=== PATIENT | female | born 1990 | race Caucasian/White ===

== ENCOUNTER → 2018-01-23 20:30 | Observation (INO) ==
[2018-01-23 17:50] VITALS: BP 132/85
[2018-01-23 17:50] LABS: Bilirubin,Urine Negative (Negative); Blood,Urine Negative (Negative); Clarity,Urine Turbid (Clear); Color,Urine Yellow (Yellow); Glucose,Urine (UA) Normal (Normal); Ketones,Urine Trace mg/dL (Negative); Leukocyte Esterase,Urine Large (Negative); Nitrite,Urine Negative (Negative); Protein,Urine Negative (Neg-Trace); Specific Gravity,Urine 1.025 (1.010-1.025); Urobilinogen,Urine Normal (Normal)
[2018-01-23 17:52] LABS: Bacteria,Urine Moderate per hpf (None-Few); Hyaline Casts,Urine None Seen per lpf (None-Few); RBC,Urine 0-3 per hpf (0-3); Squamous Epithelial Cell,Urine Many per lpf (None-Few); WBC,Urine 30-50 per hpf (0-3)
[2018-01-23 17:58] LABS: Amphetamine Screen,Urine Negative ng/mL (Cutoff=1000); Barbiturate Screen,Urine Negative ng/mL (Cutoff=200); Benzodiazepines Screen,Urine Negative ng/mL (Cutoff=200); Cannabinoid Screen,Urine Negative ng/mL (Cutoff = 50); Cocaine Screen,Urine Negative ng/mL (Cutoff= 300); Opiate Screen,Urine Negative ng/mL (Cutoff=300); Phencyclidine Screen,Urine Negative ng/mL (Cutoff=25)
[2018-01-23 20:13] LABS: Candida DNA Not Detected (Not Detect); Gardnerella DNA DETECTED (Not Detect); Trichomonas DNA Not Detected (Not Detect)
--- NOTE | 2018-01-23 20:17 | Discharge Summary ---
Date of Encounter: 01/23/18 Time of Encounter: 20:17 - Discharge Diagnosis (1) 35 weeks gestation of Priority: Primary Status: Acute Comments: Admitted for observation due to patient complaint of cramping. (2) Bacterial vaginosis Priority: Secondary Status: Acute Comments: Treat with Metrogel x 5 days. (3) NST (non-stress test) reactive Priority: Secondary Status: Acute Comments: FHR 135 bpm, moderate variability, +15x15 accels, no decels. - Discharge Medications Prescriptions: MetroNIDAZOLE [Metrogel-Vaginal] 70 gm VG HS 5 Days #5 gel.w.appl Home Medications: MetroNIDAZOLE [Metrogel-Vaginal] 70 gm VG HS 5 Days #5 gel.w.appl 01/23/18 [Rx] Pnv95/Ferrous Fumarate/FA [ Vitamin Tablet] 1 each PO 01/23/18 [History] Allergies/Adverse Reactions: Allergy/AdvReac Type Severity Reaction Status Date / Time No Known Allergies Allergy Verified 01/23/18 16:35 Data Procedures and tests throughout hospitalization: Laboratory Tests 01/23/18 01/23/18 01/23/18 15:32 15:32 19:04 Urine Color Yellow Urine Clarity Turbid A Urine pH 7.0 Ur Specific Miller 1.025 Urine Protein Negative Urine Glucose (UA) Normal Urine Ketones Trace H Urine Blood Negative Urine Nitrite Negative Urine Bilirubin Negative Urine Urobilinogen Normal Ur Leukocyte Esterase Large H Urine Microscopic RBC 0-3 Urine Microscopic WBC 30-50 H Ur Squamous Epith Cells Many H Urine Bacteria Moderate H Hyaline Casts None Seen Ur Culture Indicated? NO. A Urine Opiates Screen Negative Ur Barbiturates Screen Negative Ur Phencyclidine Scrn Negative Ur Amphetamines Screen Negative U Benzodiazepines Scrn Negative Urine Cocaine Screen Negative U Marijuana (THC) Screen Negative Ur Drug Screen Interp See Below Snehal species DNA Not Detected Gardnerella DNA Probe DETECTED A Trichomonas DNA Probe Not Detected Labs on day of discharge: Labs from last 24 hours 01/23/18 01/23/18 01/23/18 19:04 15:32 15:32 Urine Color Yellow Urine Clarity Turbid A Urine pH 7.0 Ur Specific Miller 1.025 Urine Protein Negative Urine Glucose (UA) Normal Urine Ketones Trace H Urine Blood Negative Urine Nitrite Negative Urine Bilirubin Negative Urine Urobilinogen Normal Ur Leukocyte Esterase Large H Urine Microscopic RBC 0-3 Urine Microscopic WBC 30-50 H Ur Squamous Epith Cells Many H Urine Bacteria Moderate H Hyaline Casts None Seen Ur Culture Indicated? NO. A Urine Opiates Screen Negative Ur Barbiturates Screen Negative Ur Phencyclidine Scrn Negative Ur Amphetamines Screen Negative U Benzodiazepines Scrn Negative Urine Cocaine Screen Negative U Marijuana (THC) Screen Negative Ur Drug Screen Interp See Below Snehal species DNA Not Detected Gardnerella DNA Probe DETECTED A Trichomonas DNA Probe Not Detected Date of admission: 01/23/18 15:41 Primary care physician: Bo Amanda MD Discharging clinician: Natalya Melvin Anticipated date of discharge: 01/23/18 - Patient Status Disposition: Home, Self-Care Condition: Good Functional capacity at discharge: independent ambulation Overall status at discharge: patient is back to baseline - Discharge Instructions Follow Up With: Bo Amanda MD [Primary Care Provider] - - Diet and Activity Activity: resume usual activities as tolerated Diet: regular diet Hospital Course DISCHARGE PLANNER Time Attestation: Total time spent providing and/or coordinating discharge services: Exam - Constitutional Vitals: Temp Pulse Resp BP 98.8 F 103 16 132/85 01/23/18 16:05 01/23/18 16:31 01/23/18 16:05 01/23/18 16:31 General appearance IM: A&O X 3, pleasant, no acute distress - Respiratory Respiratory exam: Present: CTAB - Cardiovascular Cardiovascular exam IM: Present: RRR, +S1, +S2 - GI/Abdominal GI/Abdominal exam IM: normal bowel sounds - Rectal Rectal exam: deferred - Extremities Exam Extremities exam IM: Present: full ROM, normal capillary refill, normal inspection - Neurological Exam Neurological exam: alert, normal gait, oriented X3 - VTE Reasons for not Prescribing Prophylaxis: Treatment not Indicated - Low risk for VTE
== END | disposition home or self-care (01) ==
LOC: 1NENULAB
PROVIDERS: ADMIT Advanced Practice Midwife; ATTEND Advanced Practice Midwife

== ENCOUNTER 2018-02-24 17:11 | Inpatient (IN) ==
[~2018-02-24 17:11] MED LIST: *HR* Nalbuphine 10 MG/ML AMPUL IVP PRN; Famotidine 20 MG/2 ML VIAL IVP PRN; Metoclopramide 10 MG/2 ML VIAL IVP PRN; Naloxone 0.4 MG/ML INJ IVP PRN; Ondansetron 4 MG/2 ML VIAL IVP PRN
[2018-02-24] MEDS ORDERED: Ringers Solution, Lactated 1,000 ML IVC SCH (17:15)
--- NOTE | 2018-02-24 17:19 | OB/GYN History & Physical ---
Date of Encounter: 02/24/18 Time of Encounter: 17:14 Assessment and Plan (1) 39 weeks gestation of Current visit: Yes Status: Acute (2) Intrauterine Current visit: Yes Status: Acute Admit to L&D for observation of labor Expectant management Pain management plan is epidural-may have upon request Labs-CBC and clot to hold Remaining auscultation GBS negative Next status evaluation post epidural Anticipate Dr. Faust is OB recreational counselor and available as needed (3) Active labor Current visit: Yes Status: Acute (4) Type A blood, Rh negative Current visit: Yes Status: Acute Rh evaluation will be done (5) Intact amniotic membranes during in third trimester Current visit: Yes Status: Acute History of Present Illness Chief complaint: active labor HPI: Ms. Spangler is a 28 year old female at 39 weeks 4 days gestation with an estimated date of 02/27/18 dated by early ultrasound. She presents in active labor mojgan every 2-[address] Varela stripped her membranes in the office today at around 11 AM. Contractions started at about 1 PM this afternoon. She endorses good movement and denies leakage of fluid and vaginal bleeding. She has been seen by Dr. Varela throughout her . Her has been complicated most recently by grade 3 placenta with adequate growth. records are available electronically been reviewed. Labs: A- GBS negative Hep B negative HIV negative GC/CL negative T. Palladium negative Varicella immune Rubella immune Past Med Surg Social Fam HX - Past Medical History Medical history: no medical history, other Additional medical history: vaginal delivery 05/08/2013. T&A @ 6 years of age Psychiatric history: no psych history - Past Surgical History Surgical History: non-contributory Additional surgical history: vaginal sx @ 18 years of age - Social History Smoking Status: Never smoker Alcohol use: none Drug use: none - Family History Mother Adopted: [place]: landon workman Age: 55 Family Member Ethnicity: Non- Living Status: Still Living Hx Family Cardiac Disorders: Yes (hypertension) Obstetrical History - Pregnancies : 2 Para: 1 Term: 1 (# 1: 05/08/2013 38weeks, , vaginal delivery, Weight:5lb 13oz, female "Chani". ) : 0 Ab's: 0 Livin Medications and Allergies Pnv95/Ferrous Fumarate/FA [ Vitamin Tablet] 1 each PO 01/23/18 [History] Allergy/AdvReac Type Severity Reaction Status Date / Time No Known Allergies Allergy Verified 01/23/18 16:35 Review of System OB All systems PM: reviewed and no additional remarkable complaints except as stated Exam - Constitutional Constitutional: well developed, well nourished, moderate distress, thin - HEENT HEENT: PERRL, Normocephaly, Mucus Membranes Moist - Neck Neck exam: full ROM - Lungs Respiratory exam: CTAB - Cardiovascular Cardiovascular exam: RRR, +S1, +S2 - Breasts Breast: bilateral: normal - Abdomen Abdomen: Present: bowel sounds normal, gravid, non tender - Extremities Extremities exam: normal capillary refill, normal inspection, radial pulses palpable and symmetrical Deep Tendon Reflex Grade: 2+ Normal - Vulva Vulva: bilateral: normal - Vagina Vagina: Present: normal moisture, discharge - Cervix Dilation: 5 Effacement: 70 Station: -2 - Uterus Uterus exam: Present: normal size, normal contour - Adnexa Adnexa: bilateral: normal - Anus/Rectum Anus/Rectum: Present: normal perianal skin Results All other labs normal. - VTE Reasons for not Prescribing Prophylaxis: Treatment not Indicated - Low risk for VTE
[2018-02-24] MEDS ORDERED: Ringers Solution, Lactated 1,000 ML ONE (17:22)
[2018-02-24 17:41] LABS: Basophils % 0.2 %; Eosinophils # 0.2 K/mcL (0.0-0.6); Hematocrit 42.8 % (35.3-44.9); Immature Granulocytes % 0.5 % (0-4); Lymphocytes # 2.1 K/mcL (0.6-4.6); Lymphocytes % 13.8 %; Mean Corpuscular HGB Conc 32.7 g/dL (31.6-35.5); Mean Corpuscular Hemoglobin 27.7 pg (28.0-33.3); Mean Corpuscular Volume 84.6 fL (83.0-100.0); Mean Platelet Volume 11.1 fL (9.4-12.4); Monocytes % 6.6 %; Neutrophils # 11.9 K/mcL (1.6-8.9); Platelet Count 288 K/mcL (140-400); Red Blood Count 5.06 M/mcL (3.82-4.97); Red Cell Distribution Width 14.1 % (11.5-14.5); Segmented Neutrophils % 77.9 %
[2018-02-24 17:50] LABS: Amphetamine Screen,Urine Negative ng/mL (Cutoff=1000); Barbiturate Screen,Urine Negative ng/mL (Cutoff=200); Benzodiazepines Screen,Urine Negative ng/mL (Cutoff=200); Cannabinoid Screen,Urine Negative ng/mL (Cutoff = 50); Cocaine Screen,Urine Negative ng/mL (Cutoff= 300); Opiate Screen,Urine Negative ng/mL (Cutoff=300); Phencyclidine Screen,Urine Negative ng/mL (Cutoff=25)
[2018-02-24] MEDS ORDERED: *HR* FentaNYL (PF) 100 MCG/2 ML VIAL EP ONE (17:56)
--- NOTE | 2018-02-24 17:59 | Anesthesia Evaluation PreOp ---
Date of Encounter: 02/24/18 Time of Encounter: 17:57 - Past History Planned Operation: antonette Cardiac History: Denies any Significant Hx Pulmonary History: Denies Any Significant HX MULE RIDER History: Denies Any Significant HX Other Medical History: GERD Anesthesia History: No Prior Anesthetic Complications (tonsil, vag, antonette) : Yes Test: Positive Alcohol Use: none Drug use: none Medications and Allergies Pnv95/Ferrous Fumarate/FA [ Vitamin Tablet] 1 each PO 01/23/18 [History] Allergy/AdvReac Type Severity Reaction Status Date / Time No Known Allergies Allergy Verified 01/23/18 16:35 - Meds/Allergy Pre-op Review Medications Reviewed: Yes Allergies Reviewed: Yes Beta Blockers on Current Med List: No Anesthesia Results - Labs 02/24/18 17:15 Anesthesia Exam see note Height: 5'5" Weight: 39 Pain Scale: 7 Pain Scale Used: Numeric (1 - 10) - HEENT Pupil (Motor): Pupils equal Mallampati: II Teeth: Normal Oral Opening: Greater than 3 - MULE RIDER LOC: Oriented MULE RIDER Motor: Normal RUE, Normal LUE, Normal RLE, Normal LLE, Normal Face MULE RIDER Sensory: Normal: RUE, LUE, RLE, LLE, Face - Cardiac Rhythm: Regular Murmur: None - Pulmonary Breath Sounds: bilateral Clear Respiratory Effort: Symmetrical Anesthesia Assess/Plan ASA Score: 2 Level of consciousness: Cooperative Anesthetic Plan: Epidural (risks discussed questions answered, consented) Monitoring Plan: Standard Monitors Recovery Plan: Other
[2018-02-24] MEDS ORDERED: Epidural Premix (fent/bupiv) 110 ML EP SCH (18:00)
[2018-02-24] MEDS ORDERED: Lidocaine -MPF 2% 5 ML VIAL ONE (18:01)
[2018-02-24] MEDS ORDERED: *HR* FentaNYL (PF) 100 MCG/2 ML VIAL ONE (18:01)
--- NOTE | 2018-02-24 18:31 | Anesthesia Procedures ---
Addendum entered and electronically signed by Milton Cornelius CRNA 02/25/18 01:55: Infant Delivery Date: 02/25/18 Delivery Time: 00:07 Original Note: Date of Encounter: 02/24/18 Time of Encounter: 18:29 Procedures: Anesthesia - Epidural/Spinal Patient ID/Chart reviewed: Yes Patient examined: Yes OB Eval: Gestational age: 39 OB Eval: : 2 OB Eval: Hx Para: 1 OB Eval: Dilated at (cm): 4 OB Eval: Contractions: Non-stressed pattern Consent Obtained: Yes Supplemental Oxygen: None/Room Air Site Prep: Aseptic Technique, Sterile prep and drape, 0.5% Chlorhexidine/Alcohol Local Anesthetic: Lidocaine 1% Amount of Local Anesthetic used: 3 Touhy Needle Gauge: 18 Touhy Needle Depth (cm): 6 Catheter Depth at Skin (cm): 15 Test Dose (1.5% Lido + Epi): Volume given (mls): 3 Test Dose Result: Negative Loading Dose: Fentanyl (mcg): 100 Loading Dose: Other: rop 0.2% 10cc Loading Dose Administered: Thru Touhy Needle Infusion Med: 0.125% Bupivacaine w/ 2 mcg/ml Fentanyl Infusion Rate (mls/hr): 15 (pcea 5 cc q30") Catheter Secured in Place: Tegaderm Interspace Used: L2-L3 Loss of Resistance (RITA): Yes Blood: No CSF: No Paresthesia: No Procedure: aseptic, cesar well, effective Vitals + FHT's: 144/88 104 fht 150
[2018-02-24] MEDS ORDERED: EPHEDrine 50 MG/ML VIAL ONE (19:01)
--- NOTE | 2018-02-24 19:37 | OB Labor Progress Note ---
Date of Encounter: 02/24/18 Time of Encounter: 19:35 Labor Progress Note - Subjective Subjective: Patient comfortable with epidural - Cervix Cervix: /-2 - Heart Tones Heart Tones: Baseline 150 Moderate variability Accelerations present 15x15 No decelerations FHR Category I - Wilbur Wilbur: Contractions every 2 minutes and palpate strong - Interventions Interventions: SVE AROM- moderate amount of clear fluid - Plan Physician notified: Yes Physician notified details: Dr. Faust notified of AROM Plan: Continue expectant management Frequent position changes with peanut ball Anticipate Dr. Faust aware of POC and agrees
[2018-02-24 20:08] LABS: Alanine Aminotransferase 14 Units/L (7-52); Aspartate Amino Transferase 18 Units/L (13-39); BUN/Creatinine Ratio 13 (6-26); Blood Urea Nitrogen 6 mg/dL (6-20); Lactate Dehydrogenase 141 Units/L (140-271); Protein/Creatinine Ratio,Urine 0.15 mg/mg (0.00-0.20); Uric Acid 5.1 mg/dL (2.3-7.6); eGFR For Non-African Americans > 60 (> 60)
[2018-02-24] MEDS ORDERED: Oxytocin 20 units/ LR 1000 mL 20 UNIT/1,000 ML BAG IVC ONE (20:19)
--- NOTE | 2018-02-24 21:53 | OB Labor Progress Note ---
Date of Encounter: 02/24/18 Time of Encounter: 21:52 Labor Progress Note - Subjective Subjective: Patient comfortable with epidural - Cervix Cervix: 9/100/-1 - Heart Tones Heart Tones: FHR Category I Unchanged from previous assessment - Holters Crossing Holters Crossing: Contractions every 3 minutes and palpate strong - Interventions Interventions: SVE Position changes - Plan Physician notified: No Plan: Continue expectant management Frequent position changes Re-evaluate in 2 hours Anticipate
--- NOTE | 2018-02-25 00:47 | OB/GYN Procedure Note ---
Delivery - Delivery Date: 02/25/18 Provider: Sintia Pacheco Intrapartum events: none Delivery induction: none Delivery augmentation: rupture of membranes Delivery monitor: external FHT, external uterine Anesthesia: epidural Quantitated Blood Loss: 200 - Infant (s) Infant A Infant Delivery Date: 02/25/18 Infant Delivery Time: 00:07 Presentation: vertex Position: OA Route of delivery: Gender: Female Viability: Viable Pounds: 7 Ounces: 5 Weight Gram: 3.33 kg at 1 minute: 8 at 5 mins: 9 Shoulder Dystocia: not encountered Specimens collected: cord blood Placenta: spontaneous Cord: 3 umbilical vessels - Repair Episiotomy: none Laceration Description: None - Complications Delivery complications: none Delivery comments: This is a 28 year old G2 now P1 who was admitted for active labor. She progressed with AROM to the second stage of labor. She pushed for about 45 minutes. She delivered a viable, male , "Moi Tay", OA over an intact perineum. A nuchal cord was not identified. A shoulder dystocia was not encountered. The infant was placed on the maternal abdomen and allowed to transition spontaneously. The cord was double clamped by electronic assembler group leader after pulsations ceased and cut by FOB. scores were 8 at 1 minute and 9 at 5 minutes. The infant weighed [default value]. The placented delivered (Tesfaye) spontaneously, intact with a 3-vessel cord. Inspection revealed an intact perineum. The uterus was firm with no active bleeding. EBL was 200 mL. Placenta and umbilical artery blood gases were not sent. There were no complications during the procedure. Mom and baby are skin to skin following delivery. - Disposition Mom disposition: stable in LDR disposition: stable in LDR
[2018-02-25] MEDS ORDERED: Benzocaine/Menthol 56 GM AEROSOL SPRAY TP PRN (03:07)
[2018-02-25] MEDS ORDERED: Acetaminophen 325 MG TABLET PO PRN (03:07)
[2018-02-25] MEDS ORDERED: Oxytocin 20 units/ LR 1000 mL 20 UNIT/1,000 ML BAG IVC SCH (03:07)
[2018-02-25] MEDS ORDERED: Rho Immune Globulin 1,500 UNIT SYRINGE IM PRN (03:07)
[2018-02-25] MEDS: Prenatal Vit/FA 1 EACH TABLET PO SCH (10:37)
[2018-02-25] MEDS: Ibuprofen 600 MG TABLET PO PRN ×2 (12:25→20:20)
[2018-02-25] MEDS ORDERED: Lanolin 7 G OINT...G. TP PRN (22:57)
[2018-02-26] MEDS: Ibuprofen 600 MG TABLET PO PRN (08:16)
[2018-02-26] MEDS: Prenatal Vit/FA 1 EACH TABLET PO SCH (08:17)
[2018-02-26 08:43] VITALS: BP 123/89
--- NOTE | 2018-02-26 09:00 | Discharge Summary ---
Date of Encounter: 02/26/18 Time of Encounter: 08:58 - Discharge Diagnosis (1) Status post vaginal delivery Priority: Primary Status: Acute Comments: Pt meeting all milestones. Plan for discharge home this am per pt osiel rios. (2) Breast feeding status of mother Priority: Secondary Status: Acute - Discharge Medications Prescriptions: Breast Pump [BREAST PUMP] 1 each .ROUTE AD #1 each Ibuprofen [Ibu] 600 mg PO Q6H #60 tablet Home Medications: Pnv95/Ferrous Fumarate/FA [ Vitamin Tablet] 1 each PO 01/23/18 [History] Breast Pump [BREAST PUMP] 1 each .ROUTE AD #1 each 02/25/18 [Rx] Ibuprofen [Ibu] 600 mg PO Q6H #60 tablet 02/25/18 [Rx] Allergies/Adverse Reactions: Allergy/AdvReac Type Severity Reaction Status Date / Time No Known Allergies Allergy Verified 01/23/18 16:35 Data Procedures and tests throughout hospitalization: Laboratory Tests 02/24/18 02/24/18 02/24/18 17:15 17:15 17:15 WBC 15.2 H RBC 5.06 H Hgb 14.0 Hct 42.8 MCV 84.6 MCH 27.7 L MCHC 32.7 RDW 14.1 Plt Count 288 MPV 11.1 Immature Gran % 0.5 Seg Neutrophils % 77.9 Lymphocytes % 13.8 Monocytes % 6.6 Eosinophils % 1.0 Basophils % 0.2 Neutrophils # 11.9 H Lymphocytes # 2.1 Monocytes # 1.0 Eosinophils # 0.2 Basophils # 0.0 BUN Creatinine Est GFR ( Amer) Est GFR (Non-Af Amer) BUN/Creatinine Ratio Uric Acid AST ALT Lactate Dehydrogenase Urine Creatinine 128 Protein/Creatinin Ratio 0.15 Urine Total Protein 19 H Urine Opiates Screen Negative Ur Barbiturates Screen Negative Ur Phencyclidine Scrn Negative Ur Amphetamines Screen Negative U Benzodiazepines Scrn Negative Urine Cocaine Screen Negative U Marijuana (THC) Screen Negative Ur Drug Screen Interp See Below Screen Baby's Blood Type Mother's Blood Type Rhogam Indicated Rhogam Req for Mother 02/24/18 02/25/18 17:15 01:05 WBC RBC Hgb Hct MCV MCH MCHC RDW Plt Count MPV Immature Gran % Seg Neutrophils % Lymphocytes % Monocytes % Eosinophils % Basophils % Neutrophils # Lymphocytes # Monocytes # Eosinophils # Basophils # BUN 6 Creatinine 0.48 L Est GFR ( Amer) > 60 Est GFR (Non-Af Amer) > 60 BUN/Creatinine Ratio 13 Uric Acid 5.1 AST 18 ALT 14 Lactate Dehydrogenase 141 Urine Creatinine Protein/Creatinin Ratio Urine Total Protein Urine Opiates Screen Ur Barbiturates Screen Ur Phencyclidine Scrn Ur Amphetamines Screen U Benzodiazepines Scrn Urine Cocaine Screen U Marijuana (THC) Screen Ur Drug Screen Interp Screen NEGATIVE Baby's Blood Type A RH POSITIVE Mother's Blood Type A RH NEGATIVE Rhogam Indicated YES Rhogam Req for Mother 1 Labs on day of discharge: Labs from last 24 hours 02/25/18 01:05 Screen NEGATIVE Rhogam Req for Mother 1 Date of admission: 02/24/18 17:11 Primary care physician: Bo Amanda MD Consults: 02/25/18 03:07 Consult to Hr Advisor [CONS] Routine Comment: Vaginal delivery, consult needed Discharging clinician: Marisabel Hughes Anticipated date of discharge: 02/26/18 - Patient Status Disposition: Home, Self-Care Condition: Good Functional capacity at discharge: independent ambulation Overall status at discharge: patient is progressing back to baseline - Discharge Instructions Follow Up With: Bo Amanda MD [Primary Care Provider] - Sintia Pacheco [Advanced Practice Nurse] - - Diet and Activity Activity: increase activity as tolerated Diet: regular diet Hospital Course Reason for admission: active labor Delivery: Episiotomy: none Laceration: none Other procedures: none complications: none Discharge diagnosis: IUP at term delivered [place] baby: female Hospital course: - Delivery Date: 02/25/18 Provider: Sintia Pacheco Intrapartum events: none Delivery induction: none Delivery augmentation: rupture of membranes Delivery monitor: external FHT, external uterine Anesthesia: epidural Quantitated Blood Loss: 200 - Infant (s) Infant A Infant Delivery Date: 02/25/18 Delivery Time: 00:07 Presentation: vertex Position: OA Route of delivery: Gender: Female Viability: Viable Pounds: 7 Ounces: 5 Weight Gram: 3.33 kg at 1 minute: 8 at 5 mins: 9 Shoulder Dystocia: not encountered Specimens collected: cord blood Placenta: spontaneous Cord: 3 umbilical vessels - Repair Episiotomy: none Laceration Description: None - Complications Delivery complications: none - Disposition Mom disposition: home PPD1 [place] disposition: home with mother, Time Attestation: Total time spent providing and/or coordinating discharge services: Time Spent: Less than 30 minutes Exam - Constitutional Vitals: Temp Pulse Resp BP Pulse Ox 97.7 F 73 16 123/89 97 02/26/18 07:55 02/26/18 07:55 02/26/18 07:55 02/26/18 07:55 02/26/18 07:55 General appearance IM: A&O X 0 - Respiratory Respiratory exam: Present: CTAB - Cardiovascular Cardiovascular exam IM: Present: RRR - GI/Abdominal GI/Abdominal exam IM: soft - Uterine Tone: Firm Uterus Position: 1 Finger Below Umbilicus - Extremities Exam Extremities exam IM: Present: normal inspection - Neurological Exam Neurological exam: normal gait, oriented X3 - Psychiatric Additional comments: reports good mood
== END 2018-02-26 10:31 | disposition home or self-care (01) | DRG 807 ==
LOC: 1NENULAB → 1NENUOBS 02-25 03:07
PROVIDERS: ADMIT Advanced Practice Midwife; ATTEND Advanced Practice Midwife